=== PATIENT | male | born 1995 | race Caucasian/White ===

== ENCOUNTER 2018-06-19 21:13 | Emergency (ER) | payer OTHER ==
[2018-06-19 22:11] LABS: Urine Blood NEGATIVE (NEG); Urine Glucose NEGATIVE (NEG); Urine Protein NEGATIVE (NEG); Urine Specific Gravity >1.030 (1.005-1.030); Urine pH 5.5 (5.0-7.0)
[2018-06-19 22:40] LABS: Absolute Lymphocytes (CBC) 2.2 K/uL (0.7-4.9); Absolute Monocytes 0.7 K/uL (0.1-1.3); Absolute Neutrophil 4.2 K/uL (1.8-8.0); Basophils % 0.6 % (0-1.3); Eosinophils % 2.6 % (0-4.4); Hematocrit 44.3 % (39.6-49.0); Lymphocytes % 29.4 % (15.3-44.8); MPV 9.1 fL (7.6-11.3); Monocytes % 9.2 % (3.3-12.3); RBC Red Blood Cell Count 4.96 M/uL (4.33-5.43)
[2018-06-19] MEDS ORDERED: NA CHLORIDE 0.9% 1,000 ML ONE (22:47)
[2018-06-19 23:00] LABS: ALT/SGPT 26 U/L (12-78); AST/SGOT 18 U/L (15-37); Albumin 4.3 g/dL (3.4-5.0); Alkaline Phosphatase 65 U/L (45-117); BUN Blood Urea Nitrogen 18 mg/dL (7-18); Bicarbonate 29 mmol/L (21-32); Bilirubin Direct < 0.1 mg/dL (0-0.2); Bilirubin Total 0.3 mg/dL (0.2-1.0); Glucose Level 96 mg/dL (74-106); Lipase 138 U/L (73-393); Potassium 3.7 mmol/L (3.5-5.1); Sodium Level 141 mmol/L (136-145)
[2018-06-19 23:07] LABS: Urine Bacteria <20 /HPF (NONE SEEN); Urine Culture Reflex Order NOT NEEDED; Urine RBC NONE SEEN /HPF (NONE SEEN)
--- NOTE | 2018-06-20 03:30 | ER ---
Nurse's Notes [facility] Name: Rob Osullivan Age: 22 yrs Sex: Male : 1995 Arrival Date: 06/19/2018 Time: 21:15 Bed 18 Private MD: Diagnosis: Unspecified abdominal pain;Nonspecific mesenteric lymphadenitis Presentation: 06/19 21:41 Presenting complaint: Patient states: dx strep at urgent care, not actually swab Sunday ak1 started medrol dose pack and zpack. vomited Sunday, dark urine Sunday, burning with urination Sunday. pt seen again at urgent care today for new s/s, no new medications or testing done. Transition of care: patient was not received from another setting of care. Onset of symptoms is unknown. Risk Assessment: Do you want to hurt yourself or someone else? Patient reports no desire to harm self or others. Initial Sepsis Screen: Does the patient meet any 2 criteria? No. Patient's initial sepsis screen is negative. Does the patient have a suspected source of infection? No. Patient's initial sepsis screen is negative. Care prior to arrival: None. 21:41 Method Of Arrival: Ambulatory ak1 21:41 Acuity: SASHA 3 ak1 Triage Assessment: 21:44 General: Appears in no apparent distress. Behavior is calm, cooperative. Pain:. Pain: ak1 Complains of pain in right low back. EENT: Throat is reddened. Neuro: No deficits noted. Cardiovascular: No deficits noted. Respiratory: No deficits noted. GI: No signs and/or symptoms were reported involving the gastrointestinal system. : No signs and/or symptoms were reported regarding the genitourinary system. Derm: No signs and/or symptoms reported regarding the dermatologic system. Historical: - Allergies: 21:44 PENICILLINS; ak1 21:44 Sulfa (Sulfonamide Antibiotics); ak1 - Home Meds: 21:44 None [Active]; ak1 - PMHx: 21:44 afib; ak1 - PSHx: 21:44 left ankle; ablasion; ak1 - Immunization history:: Adult Immunizations up to date. - Social history:: Smoking status: Patient/guardian denies using tobacco. - Ebola Screening: : No symptoms or risks identified at this time. Screenin:45 Abuse screen: Denies threats or abuse. Denies injuries from another. Nutritional ak1 screening: No deficits noted. Tuberculosis screening: No symptoms or risk factors identified. Fall Risk None identified. Assessment: 22:10 General: Appears in no apparent distress. uncomfortable, Behavior is calm, cooperative, jd3 appropriate for age. Pain: Complains of pain in low back area, right upper quadrant and right lower quadrant Quality of pain is described as aching, sharp. Neuro: Level of Consciousness is awake, alert, obeys commands, Oriented to person, place, time, situation. Cardiovascular: Capillary refill < 3 seconds Patient's skin is warm and dry. Respiratory: Airway is patent Respiratory effort is even, unlabored, Respiratory pattern is regular, symmetrical. GI: Abdomen is round non-distended, Bowel sounds present X 4 quads. Abd is soft X 4 quads Abdomen is tender to palpation in right upper quadrant Reports nausea, vomiting, Patient currently denies constipation, diarrhea. : Reports burning with urination. EENT: No signs and/or symptoms were reported regarding the EENT system. Derm: Skin is intact, Skin is dry, Skin is normal, Skin temperature is warm. Musculoskeletal: Circulation, motion, and sensation intact. Range of motion: intact in all extremities. 23:15 Reassessment: Patient appears in no apparent distress at this time. Patient and/or jd3 family updated on plan of care and expected duration. Pain level reassessed. Patient is alert, oriented x 3, equal unlabored respirations, skin warm/dry/pink. 06/20 00:08 Reassessment: Patient appears in no apparent distress at this time. Patient and/or jd3 family updated on plan of care and expected duration. Pain level reassessed. Patient is alert, oriented x 3, equal unlabored respirations, skin warm/dry/pink. 01:45 Reassessment: Patient appears in no apparent distress at this time. Patient and/or jd3 family updated on plan of care and expected duration. Pain level reassessed. Patient is alert, oriented x 3, equal unlabored respirations, skin warm/dry/pink. awaiting CT results. 02:47 Reassessment: Patient appears in no apparent distress at this time. No changes from jd3 previously documented assessment. Patient and/or family updated on plan of care and expected duration. Pain level reassessed. Patient is alert, oriented x 3, equal unlabored respirations, skin warm/dry/pink. 03:38 Reassessment: Patient appears in no apparent distress at this time. No changes from jd3 previously documented assessment. Patient and/or family updated on plan of care and expected duration. Pain level reassessed. Patient is alert, oriented x 3, equal unlabored respirations, skin warm/dry/pink. Vital Signs: 06/19 21:40 BP 150 / 86; Pulse 83; Resp 20; Temp 98.7(O); Pulse Ox 99% on R/A; Weight 102.06 kg ak1 (R); Height 6 ft. (182.88 cm) (R); Pain 5/10; 06/20 00:02 BP 136 / 74; Pulse 76; Resp 18; Pulse Ox 97% on R/A; mt 02:48 BP 138 / 82; Pulse 77; Resp 17 S; Pulse Ox 99% on R/A; jd3 06/19 21:40 Body Mass Index 30.52 (102.06 kg, 182.88 cm) ak1 ED Course: 06/19 21:15 Patient arrived in ED. ag3 21:40 Arm band placed on Patient placed in an exam room, on a stretcher, Patient notified of ak1 wait time. 21:43 Triage completed. ak1 21:45 Patient has correct armband on for positive identification. ak1 22:10 Kevin Velasquez, LILI is Primary Nurse. jd3 22:13 Jose Potts, INVESTIGATIVE REPORTER is PHCP. pm1 22:13 Vic Myles MD is Attending Physician. pm1 22:30 Inserted saline lock: 20 gauge in right antecubital area, using aseptic technique. jd3 Blood collected. 22:54 Oral contrast reported to be complete. vm2 06/20 01:18 CT Abd/Pelvis - W/Contrast: PO and IV contrast In Process Unspecified. EDMS 03:39 No provider procedures requiring assistance completed. IV discontinued, intact, jd3 bleeding controlled, No redness/swelling at site. Pressure dressing applied. Administered Medications: 06/19 22:40 Drug: NS 0.9% 1000 ml Route: IV; Rate: 1000 ml; Site: right antecubital; jd3 06/20 03:38 Follow up: Response: No adverse reaction; IV Status: Completed infusion jd3 Outcome: 03:29 Discharge ordered by MD. pm1 03:39 Discharged to home ambulatory, with family. jd3 03:39 Condition: stable 03:39 Discharge instructions given to patient, family, Instructed on discharge instructions, follow up and referral plans. Demonstrated understanding of instructions, follow-up care. 03:39 Patient left the ED. jd3 Signatures: Dispatcher [employer] EDSanna Monteiro RN RN ak1 Jose Potts NP INVESTIGATIVE REPORTER pm1 Alexsandra Millan2 Linda Starkey mt, Jonathon, RN RN jd3 Jada Ryan3
--- NOTE | 2018-06-20 03:30 | EDPHYS ---
Physician Documentation [facility] Name: Rob Osullivan Age: 22 yrs Sex: Male : 1995 Arrival Date: 06/19/2018 Time: 21:15 Bed 18 Private MD: ED Physician Vic Myles HPI: 06/20 00:00 This 22 yrs old Male presents to ER via Ambulatory with complaints of Right pm1 Flank Pain and RLQ pain. 00:00 The patient presents with pain that is acute, with no known mechanism of injury. The pm1 symptoms are located in the right low back. Onset: The symptoms/episode began/occurred today. The pain radiates to the right lower quadrant. Associated signs and symptoms: Pertinent positives: dysuria, Pertinent negatives: chest pain, constipation, fever, headache, nausea, vomiting. The problem was sustained from unknown cause, Recently diagnosed with strep pharyngitis and treated with antibiotics at urgent care. Modifying factors: The patient symptoms are alleviated by nothing, the patient symptoms are aggravated by nothing. The patient has been recently seen at an urgent care, today, last week, sore throat and diagnosed with strep pharyngitis. Present to urgent care today and was told to report to ER. Historical: - Allergies: 06/19 21:44 PENICILLINS; ak1 21:44 Sulfa (Sulfonamide Antibiotics); ak1 - Home Meds: 21:44 None [Active]; ak1 - PMHx: 21:44 afib; ak1 - PSHx: 21:44 left ankle; ablasion; ak1 - Immunization history:: Adult Immunizations up to date. - Social history:: Smoking status: Patient/guardian denies using tobacco. - Ebola Screening: : No symptoms or risks identified at this time. ROS: 06/20 00:00 Constitutional: Negative for fever, chills, and weight loss, Eyes: Negative for injury, pm1 pain, redness, and discharge, ENT: Negative for injury, pain, and discharge, Neck: Negative for injury, pain, and swelling, Cardiovascular: Negative for chest pain, palpitations, and edema, Respiratory: Negative for shortness of breath, cough, wheezing, and pleuritic chest pain. : Negative for injury, bleeding, discharge, and swelling, MS/Extremity: Negative for injury and deformity, Skin: Negative for injury, rash, and discoloration, Neuro: Negative for headache, weakness, numbness, tingling, and seizure. Abdomen/GI: Positive for abdominal pain, of the right lower quadrant, Negative for nausea, vomiting, and diarrhea. Back: Positive for flank pain, on the right. Exam: 00:00 Constitutional: This is a well developed, well nourished patient who is awake, alert, pm1 and in no acute distress. Head/Face: Normocephalic, atraumatic. Eyes: Pupils equal round and reactive to light, extra-ocular motions intact. Lids and lashes normal. Conjunctiva and sclera are non-icteric and not injected. Cornea within normal limits. Periorbital areas with no swelling, redness, or edema. ENT: Nares patent. No nasal discharge, no septal abnormalities noted. Tympanic membranes are normal and external auditory canals are clear. Oropharynx with no redness, swelling, or masses, exudates, or evidence of obstruction, uvula midline. Mucous membranes moist. Neck: Trachea midline, no thyromegaly or masses palpated, and no cervical lymphadenopathy. Supple, full range of motion without nuchal rigidity, or vertebral point tenderness. No Meningismus. Chest/axilla: Normal chest wall appearance and motion. Nontender with no deformity. No lesions are appreciated. Cardiovascular: Regular rate and rhythm with a normal S1 and S2. No gallops, murmurs, or rubs. Normal PMI, no JVD. No pulse deficits. Respiratory: Lungs have equal breath sounds bilaterally, clear to auscultation and percussion. No rales, rhonchi or wheezes noted. No increased work of breathing, no retractions or nasal flaring. 00:00 Back: No spinal tenderness. No costovertebral tenderness. Full range of motion. Skin: Warm, dry with normal turgor. Normal color with no rashes, no lesions, and no evidence of cellulitis. MS/ Extremity: Pulses equal, no cyanosis. Neurovascular intact. Full, normal range of motion. 00:00 Abdomen/GI: Inspection: abdomen appears normal, Bowel sounds: normal, Palpation: soft, in all quadrants, mild abdominal tenderness, in the right lower quadrant, mass, is not appreciated, rebound tenderness, is not appreciated. 00:00 Neuro: Orientation: is normal, Motor: is normal, moves all fours. Vital Signs: 06/19 21:40 BP 150 / 86; Pulse 83; Resp 20; Temp 98.7(O); Pulse Ox 99% on R/A; Weight 102.06 kg ak1 (R); Height 6 ft. (182.88 cm) (R); Pain 5/10; 06/20 00:02 BP 136 / 74; Pulse 76; Resp 18; Pulse Ox 97% on R/A; mt 02:48 BP 138 / 82; Pulse 77; Resp 17 S; Pulse Ox 99% on R/A; jd3 06/19 21:40 Body Mass Index 30.52 (102.06 kg, 182.88 cm) ak1 MDM: 06/19 22:13 Patient medically screened. pm1 06/20 03:27 Data reviewed: vital signs, nurses notes. Data interpreted: Pulse oximetry: on room air pm1 is 99 %. Interpretation: normal. Counseling: I had a detailed discussion with the patient and/or guardian regarding: the historical points, exam findings, and any diagnostic results supporting the discharge/admit diagnosis, lab results, radiology results, the need for outpatient follow up, to return to the emergency department if symptoms worsen or persist or if there are any questions or concerns that arise at home. 06/19 21:42 Order name: Strep; Complete Time: 22:14 06/19 21:50 Order name: Urine Dipstick--Ancillary (enter results) ar5 06/19 22:07 Order name: Throat Culture [facility] 06/19 22:23 Order name: Basic Metabolic Panel; Complete Time: 00:24 pm1 06/19 22:23 Order name: CBC with Diff; Complete Time: 22:52 pm1 06/19 22:23 Order name: Creatinine for Radiology; Complete Time: 00:24 pm1 06/19 22:23 Order name: Hepatic Function; Complete Time: 00:24 pm1 06/19 22:23 Order name: Lipase; Complete Time: 00:24 pm1 06/19 22:23 Order name: IV Saline Lock; Complete Time: 22:36 pm1 06/19 22:23 Order name: Labs collected and sent; Complete Time: 22:36 pm1 06/19 22:23 Order name: CT Abd/Pelvis - W/Contrast: PO and IV contrast pm1 06/19 22:23 Order name: Flu; Complete Time: 00:24 pm1 06/19 22:23 Order name: Urine Microscopic Only; Complete Time: 00:24 pm1 06/19 22:23 Order name: Urine Dipstick-Ancillary (obtain specimen); Complete Time: 22:36 pm1 Administered Medications: 06/19 22:40 Drug: NS 0.9% 1000 ml Route: IV; Rate: 1000 ml; Site: right antecubital; jd3 06/20 03:38 Follow up: Response: No adverse reaction; IV Status: Completed infusion jd3 Disposition: 06/20/18 03:29 Discharged to Home. Impression: Unspecified abdominal pain, Nonspecific mesenteric lymphadenitis. - Condition is Stable. - Discharge Instructions: Abdominal Pain, Adult, Mesenteric Adenitis, Pediatric. - Medication Reconciliation Form, Thank You Letter, Antibiotic Education form. - Follow up: Emergency Department; When: As needed; Reason: Worsening of condition. Follow up: Private Physician; When: 2 - 3 days; Reason: Recheck today's complaints, Continuance of care, Re-evaluation by your physician. - Problem is new. - Symptoms have improved. Addendum: 06/25/2018 11:32 Co-signature as Attending Physician, Vic Myles MD I agree with the assessment and c marion plan of care. Signatures: Dispatcher [employer] EDVic Kramer MD MD cha Krenek, Amber, RN RN ak1 Jose Potts, FACULTY NEUROPSYCHOLOGIST FACULTY NEUROPSYCHOLOGIST pm1 Kevin Velasquez RN RN jd3 Corrections: (The following items were deleted from the chart) 06/20 03:39 03:29 06/20/2018 03:29 Discharged to Home. Impression: Unspecified abdominal pain; jd3 Nonspecific mesenteric lymphadenitis. Condition is Stable. Forms are Medication Reconciliation Form, Thank You Letter, Antibiotic Education, Prescription Opioid Use. Follow up: Emergency Department; When: As needed; Reason: Worsening of condition. Follow up: Private Physician; When: 2 - 3 days; Reason: Recheck today's complaints, Continuance of care, Re-evaluation by your physician. Problem is new. Symptoms have improved. pm1
[2018-06-20 03:59] VITALS: TEMP 98.7
[2018-06-20 04:01] VITALS: BP 138/82; O2SAT 99
--- NOTE | 2018-06-20 07:42 | RAD REPORT ---
EXAM DESCRIPTION: CT - Abdomen Pelvis W Contrast - 06/20/2018 1:18 am CLINICAL HISTORY: Abdominal pain. Right lower quadrant pain/dysuria COMPARISON: None. TECHNIQUE: Computed axial tomography of the abdomen and pelvis was obtained. 100 cc Isovue-300 is ad ministered intravenously. Oral contrast was given.Preliminary report generated by [facility] and reviewed prior to dictation All CT scans are performed using dose optimization technique as appropriate and may include automated exposure control or mA/KV adjustment according to patient size. FINDINGS: The liver, spleen, pancreas, adrenals and kidneys appear unremarkable. The appendix is normal caliber. There is no evidence of diverticulitis Tiny umbilical hernia IMPRESSION: No acute abnormality displayed
== END 2018-06-20 03:39 | disposition home or self-care (01) ==
LOC: ER 21:13
DX: I88.0 Nonspecific mesenteric lymphadenitis (principal); Z88.0 Allergy status to penicillin; Z88.2 Allergy status to sulfonamides
CPT/HCPCS: 36415; 74177; 80048; 80076; 81003; 81015; 83690; 85025; 87070; 87081; 87804; 96360; 96361; 99284; J7030; Q9967